=== PATIENT | male | born 1945 | race Caucasian/White ===

== ENCOUNTER 2017-01-31 11:11 | Inpatient (IN) ==
[2017-01-31] MEDS ORDERED: 0.9 % Sodium Chloride 1,000 ML IVC ONE (11:45)
--- NOTE | 2017-01-31 11:58 | Emergency Department Note ---
Addendum entered and electronically signed by Felix Schaeffer DO 01/31/17 23 :35: Addendum is for reports of MRA of head and neck. This showed occlusion of the branches of the internal carotid artery. Patient stable throughout his time in the emergency department. Patient accepted to [facility] with hospitalist for further evaluation of neurologic and Cardiologic causes of his syncope. Original Note: Disposition Clinical Impression: Syncope Qualifiers: Syncope type: unspecified Qualified Code(s): R55 - Syncope and collapse Disposition: Admitted As Inpatient Condition: Good Syncope HPI - General Chief Complaint: ED Syncope Stated Complaint: Syncope Time Seen by Provider: 01/31/17 11:40 Source: patient, EMS Mode of arrival: EMS Limitations: no limitations Nursing Notes Reviewed: Yes Vital Signs Reviewed: Yes - History of Present Illness HPI Narrative: 71-year-old male with history of carotid disease, heart disease, brain aneurysm presents by EMS from the 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 This occurred a few minutes after he received IV dye leading drops bilaterally. He was seated in his chair and then slumped over and became unresponsive for about 3 minutes. He was breathing throughout this episode. He did not have any tonic-clonic activity or loss of bowel or bladder function. He was diaphoretic through this episode. He feels fine at this time. He had a mild diffuse headache prior to the episode without any neck stiffness, vomiting, or complete confusion. He denies any recent trauma, illness or injury. He had a noncontrast CT performed at the urgent care there which was read as no evidence of intracranial hemorrhage with 3 mm density consistent with patient's known aneurysm. Labs there showed calcium of 9.1 chloride 109 CO2 23 creatinine 2.47 glucose 88 potassium 4.7 sodium 140 2B when 19 GFR 27.6 white blood cells 8.8 hemoglobin 13.9 platelets 278 troponin 0.00. - Related Data Home Medications Medication Instructions Recorded Confirmed Acetaminophen [Tylenol] 650 mg PO Q6HR PRN 01/31/17 01/31/17 Albuterol Sulfate [Albuterol 2 puff IH QID PRN 01/31/17 01/31/17 Inhaler] Amlodipine Besylate 10 mg PO DAILY 01/31/17 01/31/17 Cetirizine HCl [Zyrtec] 10 mg PO DAILY 01/31/17 01/31/17 Clotrimazole 1% CRM [Lotrimin 1%] 1 appl TP 2-3XD PRN 01/31/17 01/31/17 Donepezil HCl [Aricept] 5 mg PO DAILY 01/31/17 01/31/17 Hydrophilic Cream [Basle] 1 appl TP BID PRN 01/31/17 01/31/17 Isosorbide MONOnitrate [Isosorbide 20 mg PO BID 01/31/17 01/31/17 Mononitrate] Losartan Potassium [Cozaar] 100 mg PO DAILY 01/31/17 01/31/17 Ranitidine HCl [Zantac] 150 mg PO BID 01/31/17 01/31/17 Previous Rx's Medication Instructions Recorded Aspirin 81 mg PO DAILY #30 tab.chew 02/02/17 Atorvastatin [Lipitor] 40 mg PO HS #30 tablet 02/02/17 Carvedilol [Coreg] 3.125 mg PO BIDWM #60 tablet 02/02/17 Allergies Allergy/AdvReac Type Severity Reaction Status Date / Time No Known Allergies Allergy Verified 01/31/17 11:27 All systems ED: reviewed and negative except as stated. Past Medical History - Past Medical History Attestation: Yes The following information was validated with the patient. Source: patient Medical history: Reports: aortic aneurysm, arthritis, cancer, COPD, coronary artery disease, GERD, hyperlipidemia, hypertension, renal disease Psychiatric history: Reports: no psych history - Social History Smoking Status: Current every day smoker Smokeless Tobacco Status: No Alcohol use: Reports: none Drug use: Reports: none Physical Exam - Head Head exam: atraumatic, normocephalic, normal inspection - Eye Eye exam: Present: normal appearance, PERRL, EOMI - ENT ENT exam: normal exam, normal oropharynx, mucous membranes moist - Neck Neck exam: Present: normal inspection, full ROM, trachea midline no tenderness or nuchal rigidity. - Chest Chest inspection: Present: normal inspection, symmetric chest wall rise - Respiratory Respiratory exam: Clear to auscultation bilaterally without wheezes rales or rhonchi Cardiovascular Cardiovascular exam: Present: regular rate, normal rhythm, normal heart sounds - Abdominal Exam Abdominal exam: Present: soft, Non-Tender. Absent: tenderness, distention, guarding, rebound, rigidity - Extremities Exam Extremities exam: Present: normal inspection, full ROM - Expanded Lower Extremity Exam Hip/Pelvis exam: Present: normal inspection, full ROM - Back Exam Back exam: Present: normal inspection, full ROM. Absent: tenderness, CVA tenderness (R), CVA tenderness (L) - Neurological Exam Neurological exam: Present: alert, oriented X3, CN II-XII intact - Psychiatric Psychiatric exam: Present: normal affect, normal mood - Skin Skin exam: Present: warm, dry, intact, normal color - General Limitations: no limitations General appearance: alert, in no apparent distress Course Vital Signs Temperature 98.6 F 01/31/17 11:13 Pulse Rate 52 01/31/17 11:13 Respiratory Rate 16 01/31/17 11:13 Blood Pressure 150/66 01/31/17 11:13 O2 Sat by Pulse Oximetry 97 01/31/17 11:13 Temperature 97.8 F 02/02/17 10:51 Pulse Rate 49 02/02/17 10:51 Respiratory Rate 16 02/02/17 10:51 Blood Pressure 160/76 02/02/17 10:51 O2 Sat by Pulse Oximetry 97 02/02/17 11:00 Oxygen Delivery Oxygen Delivery Room Air Syncope - Lab Data Result diagrams: 02/02/17 03:45 02/02/17 03:45 Lab Results 01/31/17 01/31/17 02/01/17 Range/Units 14:16 19:37 01:41 WBC (4.3-11.1) K/mcL RBC (4.19-5.50) M/mcL Hgb (12.9-16.9) g/dL Hct (37.5-50.1) % MCV (83.0-100.0) fL MCH (28.0-33.3) pg MCHC (31.6-35.5) g/dL RDW (11.5-14.5) % Plt Count (140-400) K/mcL MPV (9.4-12.4) fL Immature Gran % (0-4) % Seg Neutrophils % % Lymphocytes % % Monocytes % % Eosinophils % % Basophils % % Neutrophils # (1.6-8.9) K/mcL Lymphocytes # (0.6-4.6) K/mcL Monocytes # (0.0-1.3) K/mcL Eosinophils # (0.0-0.6) K/mcL Basophils # (0.0-0.2) K/mcL Sodium (136-145) mEq/L Potassium (3.5-4.5) mEq/L Chloride (98-109) mEq/L Carbon Dioxide (19-29) mEq/L BUN (8-26) mg/dL Creatinine (0.72-1.25) mg/dL POC Creatinine 2.30 H (0.70-1.30) mg/dL POC Estimated GFR (eGFR) 28 L (> 60) Est GFR ( Amer) (> 60) Est GFR (Non-Af Amer) (> 60) BUN/Creatinine Ratio (6-26) Glucose (70-99) mg/dL Calculated Osmolality (280-300) Calcium (8.6-10.8) mg/dL Troponin I 0.01 0.02 (0-0.03) ng/mL B-Natriuretic Peptide (0-100) pg/mL Triglycerides (< 150) mg/dL Cholesterol (< 200) mg/dL LDL Cholesterol, Calc (0-99) mg/dL VLDL Cholesterol, Calc (< 31) mg/dL HDL Cholesterol (40-59) mg/dL Cholesterol/HDL Ratio (0-4.9) 02/01/17 02/01/17 02/01/17 Range/Units 01:41 01:41 01:41 WBC 11.7 H (4.3-11.1) K/mcL RBC 3.81 L (4.19-5.50) M/mcL Hgb 12.0 L (12.9-16.9) g/dL Hct 37.1 L (37.5-50.1) % MCV 97.4 (83.0-100.0) fL MCH 31.5 (28.0-33.3) pg MCHC 32.3 (31.6-35.5) g/dL RDW 14.0 (11.5-14.5) % Plt Count 240 (140-400) K/mcL MPV 10.8 (9.4-12.4) fL Immature Gran % 0.4 (0-4) % Seg Neutrophils % 50.8 % Lymphocytes % 33.3 % Monocytes % 9.3 % Eosinophils % 5.9 % Basophils % 0.3 % Neutrophils # 5.9 (1.6-8.9) K/mcL Lymphocytes # 3.9 (0.6-4.6) K/mcL Monocytes # 1.1 (0.0-1.3) K/mcL Eosinophils # 0.7 H (0.0-0.6) K/mcL Basophils # 0.0 (0.0-0.2) K/mcL Sodium 140 (136-145) mEq/L Potassium 4.6 H (3.5-4.5) mEq/L Chloride 110 H (98-109) mEq/L Carbon Dioxide 18 L (19-29) mEq/L BUN 28 H (8-26) mg/dL Creatinine 2.15 H (0.72-1.25) mg/dL POC Creatinine (0.70-1.30) mg/dL POC Estimated GFR (eGFR) (> 60) Est GFR ( Amer) 37 L (> 60) Est GFR (Non-Af Amer) 30 L (> 60) BUN/Creatinine Ratio 13 (6-26) Glucose 77 (70-99) mg/dL Calculated Osmolality 294 (280-300) Calcium 9.0 (8.6-10.8) mg/dL Troponin I (0-0.03) ng/mL B-Natriuretic Peptide 59 (0-100) pg/mL Triglycerides 58 (< 150) mg/dL Cholesterol 123 (< 200) mg/dL LDL Cholesterol, Calc 81 (0-99) mg/dL VLDL Cholesterol, Calc 12 (< 31) mg/dL HDL Cholesterol 30 L (40-59) mg/dL Cholesterol/HDL Ratio 4.1 (0-4.9) 02/01/17 Range/Units 06:52 WBC (4.3-11.1) K/mcL RBC (4.19-5.50) M/mcL Hgb (12.9-16.9) g/dL Hct (37.5-50.1) % MCV (83.0-100.0) fL MCH (28.0-33.3) pg MCHC (31.6-35.5) g/dL RDW (11.5-14.5) % Plt Count (140-400) K/mcL MPV (9.4-12.4) fL Immature Gran % (0-4) % Seg Neutrophils % % Lymphocytes % % Monocytes % % Eosinophils % % Basophils % % Neutrophils # (1.6-8.9) K/mcL Lymphocytes # (0.6-4.6) K/mcL Monocytes # (0.0-1.3) K/mcL Eosinophils # (0.0-0.6) K/mcL Basophils # (0.0-0.2) K/mcL Sodium (136-145) mEq/L Potassium (3.5-4.5) mEq/L Chloride (98-109) mEq/L Carbon Dioxide (19-29) mEq/L BUN (8-26) mg/dL Creatinine (0.72-1.25) mg/dL POC Creatinine (0.70-1.30) mg/dL POC Estimated GFR (eGFR) (> 60) Est GFR ( Amer) (> 60) Est GFR (Non-Af Amer) (> 60) BUN/Creatinine Ratio (6-26) Glucose (70-99) mg/dL Calculated Osmolality (280-300) Calcium (8.6-10.8) mg/dL Troponin I 0.01 (0-0.03) ng/mL B-Natriuretic Peptide (0-100) pg/mL Triglycerides (< 150) mg/dL Cholesterol (< 200) mg/dL LDL Cholesterol, Calc (0-99) mg/dL VLDL Cholesterol, Calc (< 31) mg/dL HDL Cholesterol (40-59) mg/dL Cholesterol/HDL Ratio (0-4.9) - EKG Data EKG attestation: Yes I reviewed and interpreted this EKG. EKG results narrative: EKG shows sinus bradycardia at 55 with normal axis and intervals. No ST elevation or depression. No T-wave inversions or flattening. No pathologic Q waves. This is a normal EKG other than slightly bradycardic rate. Attestation Statement - Attestation Attestation: I examined this patient and my medical decision-making was reviewed with the RADIOLOGY DIRECTOR/PA/Advanced Practice Nurse/Resident Physician. I agree with the documented findings, disposition and treatment plan as described except to the extent set forth below. Patient 80 after syncopal episode. Patient was entered up, treated appointment at the [place]. They put drops in his eyes and he had syncopal episode. He does not remember the event. Family states that he had a loss of consciousness over a couple of minutes. He feels fine now. He has a history of a nonoperable frontal lobe aneurysm and carotid stenosis. On exam he is awake and alert in no distress. Neurologically intact. Plan. The patient had a cardiac workup and head CT at the [place] they do not show any acute abnormalities or acute cranial hemorrhages. We will check MRA head and neck. Will admit for further cardiac workup.
[2017-01-31] MEDS ORDERED: Naloxone 0.4 MG/ML INJ IVP PRN (19:07)
[2017-01-31] MEDS ORDERED: Clotrimazole 1% CRM 15 GM TUBE TP PRN (19:09)
--- NOTE | 2017-01-31 19:20 | Internal Med History&Physical ---
<Avril Carcamo - Last Filed: 01/31/17 19:32> Date of Encounter: 01/31/17 Time of Encounter: 19:13 Assessment and Plan (1) Syncope Current visit: Yes Status: Acute on day of admission while eye were being dilated for exam at [facility]. Was found slumped over in chair by ; with 1-2 min loss of consciousness. Etiology unknown at this time. carotid setnosis and No evidence if biting tongue, no loss of badder. [facility] EKG with bradycardia, has known carotid stenosis. Brain MRI negative for CVA. Head/neck MRI/A with complete distal right ICA occlusion, 50% left ICA occlusion. Check echo, orthostatics. Consult Vascular Surgery Qualifiers: Syncope type: unspecified Qualified Code(s): R55 - Syncope and collapse (2) Carotid artery stenosis Current visit: Yes Status: Acute per hx. Has routine imaging at [facility]. Per [facility] records, surgical intervention was not recommended 11/2015. Head/neck MRI/A with complete distal right ICA occlusion , 50% left ICA occlusion. Vascular Surgery consulted Qualifiers: Laterality: bilateral Qualified Code(s): I65.23 - Occlusion and stenosis of bilateral carotid arteries (3) CKD (chronic kidney disease) Current visit: Yes Status: Acute per reported hx. [facility] Cr 2.4; baseline unknown. Gentle IV hydration. repeat CMP. Nephrology consulted with possible vascular intervention. Qualifiers: Chronic kidney disease stage: stage 3 (moderate) Qualified Code(s): N18.3 - Chronic kidney disease, stage 3 (moderate) (4) Cerebral aneurysm Current visit: Yes Status: Acute per reported hx. [facility] Head CT with concern for small right anterior cerebral artery aneurysm. [facility] MRA head without evidence of intracranial aneurysm. Hold on further work-up at this time. (5) HTN (hypertension) Current visit: Yes Status: Acute per hx. BP variable but acceptable. Holding home ARB until repeat CMP to reassess Cr. Cont home BB, amlodipine Resume ARB if Cr stable. Monitor BP and titrate PRN Qualifiers: Hypertension type: essential hypertension Qualified Code(s): I10 - Essential (primary) hypertension (6) CAD (coronary artery disease) Current visit: Yes Status: Acute per hx. Asymptomatic. Denies CP. [facility] EKG with Sinus bradycardia. no acute ST changes. COnt home ASA, BB, nitrate Qualifiers: Coronary Disease-Associated Artery/Lesion type: ione artery Qualified Code(s): I25.10 - Atherosclerotic heart disease of ione coronary artery without angina pectoris (7) Dementia Current visit: Yes Status: Acute per hx. Appears at baseline. Supportive care Qualifiers: Dementia type: vascular dementia Qualified Code(s): F01.50 - Vascular dementia without behavioral disturbance (8) DVT prophylaxis Current visit: Yes Status: Acute heparin Internal Medicine - H&P: HPI Chief complaint: I passed out Admitted From: Home Plans for Post Hospital Care: Home History of present illness: Mr. Real is a 71 year old male with PMH COPD, TIA, HTN, dementia, cerebral aneurysm, and carotid stenosis who presented to [facility] on 01/31/2017 after a syncopal episode while at the [place]. He was placed in observation status for continued monitoring and work-up. Information obtained from chart review, [facility], patient and family report. Patient does not remember the incident and defers questions at bedside. Per , patient was at [facility] and just had eyes dilated she he suddenly slumped over, was drooling at the mouth with copious secretions. thinks he was out for 1-2 minutes. Patient denies biting teeth , no loss of bladder control. No seizure like activity per . He was apparently emotional after waking up and would moan and cry out. is not sure if speech was slurred but says she had hard time understanding him. On my exam he appears at baseline. Has chronic right eye blurred vision. No slurred speech, no facial droop. No headaches or palpitations Past Med Surg Social Fam HX - Past Medical History Medical history: aortic aneurysm, arthritis, cancer, COPD, coronary artery disease, GERD, hyperlipidemia, hypertension, renal disease Psychiatric history: no psych history - Past Surgical History Surgical History: non-contributory - Social History Smoking Status: Current every day smoker Smokeless Tobacco Status: No Alcohol use: none Drug use: none - Additional Family History Additional family history: reviewed and non-contributory Internal Medicine - H&P: Meds Acetaminophen [Tylenol] 650 mg PO Q6HR PRN 01/31/17 [History] Albuterol Sulfate [Albuterol Inhaler] 2 puff IH QID PRN 01/31/17 [History] Amlodipine Besylate 10 mg PO DAILY 01/31/17 [History] Atorvastatin Calcium [Lipitor] 20 mg PO HS 01/31/17 [History] Carvedilol [Coreg] 6.25 mg PO BIDWM 01/31/17 [History] Cetirizine HCl [Zyrtec] 10 mg PO DAILY 01/31/17 [History] Clotrimazole 1% CRM [Lotrimin 1%] 1 appl TP 2-3XD PRN 01/31/17 [History] Donepezil HCl [Aricept] 5 mg PO DAILY 01/31/17 [History] Hydrophilic Cream [Basle] 1 appl TP BID PRN 01/31/17 [History] Isosorbide MONOnitrate [Isosorbide Mononitrate] 20 mg PO BID 01/31/17 [History] Losartan Potassium [Cozaar] 100 mg PO DAILY 01/31/17 [History] Ranitidine HCl [Zantac] 150 mg PO BID 01/31/17 [History] Allergies No Known Allergies Allergy (Verified 01/31/17 11:27) All Systems PM: A 10-system review of systems was performed and is negative for pertinent findings except as documented above in the HPI. - Constitutional Constitutional: no chills, no fever(s), no night sweats - EENT Eyes: blurry vision, no change in vision, no discharge, no pain, no photophobia Ears: no ear discharge, no ear pain, no tinnitus Nose, mouth and throat: no dysphagia, no nasal discharge, no neck pain, no sore throat - Cardiovascular Cardiovascular ROS IM: no chest pain, no diaphoresis, no dyspnea, no lightheadedness, no palpitations, no syncope - Respiratory Respiratory: no cough, no dyspnea, no wheezing, no excessive phlegm production - Gastrointestinal Gastrointestinal: no abdominal pain, no diarrhea, no hematemesis, no hematochezia, no melena, no nausea, no vomiting - Musculoskeletal Musculoskeletal ROS IM: no numbness, no tingling - Integumentary Integumentary IM: no rash, no unusual bruising - Neurological Neurological ROS: no confusion, no convulsions, no focal weakness, no numbness, no tingling, no tremor(s) - Hematologic/Lymphatic Hematologic/Lymphatic: no easy bruising - Constitutional Vitals: Temp Pulse Resp BP Pulse Ox 97.9 F 61 15 154/64 96 01/31/17 18:07 01/31/17 18:07 01/31/17 18:07 01/31/17 18:07 01/31/17 18:07 General appearance: Present: A&O X 2, no acute distress - Head Head exam: Present: atraumatic, normocephalic - Eye Eye exam: Present: PERRL, conjuntiva pink, sclera anicteric Pupils: Present: PERRL - Neck Neck exam general surgery: Present: supple, trachea midline. Absent: lymphadenopathy - Respiratory Respiratory exam: Present: CTAB, rhonchi. Absent: accessory muscle use, rales, wheezes Additional comments: scattered rhonchi, clears with cough - Cardiovascular Cardiovascular exam: Present: RRR, +S1, +S2. Absent: diastolic murmur, gallop, rubs, systolic murmur - GI/Abdominal GI/Abdominal exam: Present: normal bowel sounds, soft, no peritoneal signs. Absent: distended, tenderness - Extremities Exam Extremities exam: Present: warm, radial pulses palpable and symetrical. Absent : calf tenderness, cyanotic, pedal edema - Neurological Exam Neurological exam: Present: alert, CN II-XII intact, no focal deficits. Absent : pronater drift, facial droop, speech deficit Additional comments: alert to self and place - Skin Skin exam: Present: dry, intact <Lamin Thorpe - Last Filed: 01/31/17 21:10> Date of Encounter: 01/31/17 - Genitourinary Genitourinary ROS male: no flank pain, no hematuria - Psychiatric Psychiatric: no anxiety, no depression - Endocrine Endocrine IM: no cold intolerance, no heat intolerance, no polydipsia, no polyphagia, no polyuria - Allergic/Immunologic Allergic/Immunologic: no uticaria, no wheezing, no GI upset with certain foods - Constitutional Vitals: Temp Pulse Resp BP Pulse Ox 98.0 F 57 18 159/71 97 01/31/17 20:15 01/31/17 20:15 01/31/17 20:15 01/31/17 20:15 01/31/17 20:15 General appearance: Present: cooperative, A&O X 2, pleasant, no acute distress - Head Head exam: Present: atraumatic - Expanded Head Exam Head exam expanded: Absent: abrasion, contusion, general tenderness - Neck Neck exam general surgery: Present: full ROM. Absent: tenderness - Expanded Neck Exam Neck exam: Present: carotid bruit (+ bilaterally) - Respiratory Respiratory exam: Present: CTAB. Absent: respiratory distress - Cardiovascular Cardiovascular exam: Present: RRR, +S1, +S2. Absent: diastolic murmur, systolic murmur - GI/Abdominal GI/Abdominal exam: Present: soft. Absent: tenderness Additional comments: no abdominal bruits noted - Back Exam Back exam: Present: normal inspection. Absent: CVA tenderness (L), CVA tenderness (R) - Neurological Exam Neurological exam: Present: alert, CN II-XII intact, no focal deficits - Psychiatric Psychiatric exam: Present: normal affect, normal mood - Skin Skin exam: Present: dry, warm. Absent: rash Internal Med - H&P Results - Labs Labs: Cardiac Enzymes 01/31/17 Range/Units 19:37 Troponin I 0.01 (0-0.03) ng/mL - EKG Data -: EKG Interpreted by Myself EKG shows normal: sinus rhythm Rate: bradycardia - EKG Data Prior EKG available for review: no EKG comments: 01/31/17 21:00 Sinus bradycardia with HR in the 50's; no other findings. - Attending Attestation I discussed the patient KALSKAG, PMH, ROS, lab data, and exam findings with Avril Carcamo CNP. I then saw, examined, and assessed patient independently as well. Patient does not [facility], but he remembers waking up and being a little confused afterwards. Presently, he feels well and is at his baseline. I reviewed his [facility] chart provided and personally reviewed his EKG as well. On exam, he does have bilateral carotid bruits. I agree with vascular surgery and nephrology consults, especially if he'll require angiogram to better define his carotid anatomy. He may need CEA now that he is symptomatic from his carotid stenosis. However, I'll defer to vascular surgery. Per patient, there is FH for stroke and his brother did require CEA. Other than my comments above and noted exam findings, I agree with Avril's assessment and plan.
[2017-01-31] MEDS ORDERED: Isosorbide MONOnitrate (24 HR) 30 MG TAB.ER.24H PO SCH (21:00)
[2017-01-31] MEDS: *HR* Heparin 5,000 UNIT/ML VIAL SQ SCH (21:18)
[2017-01-31] MEDS: 0.9 % Sodium Chloride 1,000 ML IVC SCH (21:19)
--- NOTE | 2017-01-31 22:23 | Carotid Imaging Report ---
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 Findings: Diffuse thickening vs chronic plaque of left carotid system. Beginning at the level of the Left ICA tapers to a small diameter vessel. Overall low flow velocities on the left despite right ICA occlusion(chronic) suggests distal disease. Recommendations: Suggest clinical correlation and Follow up exam 6 months. Test completed on 01/31/2017 at 9:48:00 pm. Critical findings reported to Dr Guevara by phone at 9:55:00 pm on 01/31/2017 by Jaye Lamb RDCS. Findings Carotid Duplex: Right: The right proximal common carotid artery has a PSV of 68 cm/s and a EDV of 11 cm/s. The right mid common carotid artery has a PSV of 48 cm/s and a EDV of 11 cm/s. The right distal common carotid artery has a PSV of 61 cm/s and a EDV of 11 cm/s. The right bifurcation has a PSV of 45 cm/s and a EDV of 12 cm/s. The right eca has a PSV of 497 cm/s and a EDV of 66 cm/s. The right vertebral artery has a PSV of 80 cm/s and a EDV of 28 cm/s. There is antegrade spectral Doppler flow patterns. Left: The left proximal common carotid artery has a PSV of 41 cm/s and a EDV of 18 cm/s. The left mid common carotid artery has a PSV of 39 cm/s and a EDV of 20 cm/s. The left distal common carotid artery has a PSV of 36 cm/s and a EDV of 18 cm/s. There is nonstenotic plaque in the left bifurcation with a PSV of 58 cm/s and a EDV of 27 cm/s. There is smooth plaque. The left proximal internal carotid artery has a PSV of 57 cm/s and a EDV of 21 cm/s. The left mid internal carotid artery has a PSV of 61 cm/s and a EDV of 32 cm/s. The left distal internal carotid artery has a PSV of 48 cm/s and a EDV of 27 cm/s. The left eca has a PSV of 47 cm/s and a EDV of 14 cm/s. The left vertebral artery has a PSV of 47 cm/s and a EDV of 16 cm/s. There is antegrade spectral Doppler flow patterns. Prior Study: No prior study available for comparison. Carotid Results Right PSV EDV Assessment Proximal CCA 68 11 Mid CCA 48 11 Distal CCA 61 11 Bifurcation 45 12 ECA 497 66 Vertebral Artery 80 28 Antegrade Flow Left PSV EDV Assessment Proximal CCA 41 18 Mid CCA 39 20 Distal CCA 36 18 Bifurcation 58 27 Non Stenotic Plaque Proximal ICA 57 21 Mid ICA 61 32 Distal ICA 48 27 ECA 47 14 Vertebral Artery 47 16 Antegrade Flow Ratio's Left ICA/CCA Ratio: 1.56 ICA/CCA Values: 61/39 Updated by Harshad Guevara MD, FACS on 01/31/2017 10:17:56 PM Harshad Guevara MD electronically signed on 01/31/2017 10:18:54 PM with status of Final
--- NOTE | 2017-01-31 22:56 | Vascular/Endovasc Consult Note ---
Date of Encounter: 01/31/17 Time of Encounter: 22:53 Assessment and Plan (1) Syncope Current Visit: Yes Status: Acute Unexplained episode of syncope that occurred at the [facility] earlier today. No previous episodes of syncope. No history of seizure activity. Qualifiers: Syncope type: unspecified Qualified Code(s): R55 - Syncope and collapse (2) Carotid artery stenosis Current Visit: Yes Status: Chronic Patient has chronic right internal carotid artery occlusion. There is pathologic changes diffusely in the left carotid system by duplex scanning but there is no focal hemodynamically significant stenosis. There is no indication for further testing such as carotid angiography or carotid endarterectomy for the left carotid artery. I've explained to the patient that due to the occlusive nature of the plaque on the right side that there is no indication for right carotid endarterectomy. Of note the vertebral arteries are patent with antegrade flow bilaterally. Qualifiers: Laterality: bilateral Qualified Code(s): I65.23 - Occlusion and stenosis of bilateral carotid arteries - History of Present Illness Consult date: 01/31/17 Consult reason: Syncope with abnormal carotid study Chief complaint: Passing out at [facility] History of present illness: Mr. Real is a 71 year old male who was seen in consultation because of a syncopal episode that occurred early this morning. The patient is not a completely clear historian but as best I can understand it he was at the [facility] for an ophthalmologic evaluation. While being evaluated he became unconscious for no apparent reason. Apparently he was unconscious for approximately 1-2 minutes and had no seizure-like activity. From there he was taken to the urgent care center and then referred to [facility]. He was subsequently admitted to the hospital. The patient denies any previous similar type symptoms. He states that when he was in the urgent care's area he had a headache but this has subsequently resolved. He states that about 5 years ago he had dramatic decrease in the right eye vision. This apparently led to a workup that included a carotid duplex scan that demonstrated an occluded right internal carotid artery. He states that he has had subsequent carotid duplex scans though we do not know the results of those exams. The patient underwent an MRA and MRI today. This demonstrated no acute ischemia or intercranial mass. It demonstrated a right internal carotid artery occlusion and a suspicion for left carotid stenosis. A carotid duplex scan was performed this evening about 1 hour ago which I have reviewed the images and spoken with the technologist. This demonstrates the right internal carotid artery occlusion which appears chronic. The left internal carotid system has a thickening or chronic thrombus or plaque that extends through the vessel but does not cause any dramatic stenosis or hemodynamically significant reduction in flow. In the midportion of the left internal carotid artery the vessel decreases in caliber but again without signs of dissection or acute thrombus. Past Med Surg Social Fam HX - Past Medical History Medical history: aortic aneurysm, arthritis, cancer, COPD, coronary artery disease, GERD, hyperlipidemia, hypertension, renal disease Psychiatric history: no psych history - Past Surgical History Surgical History: non-contributory - Social History Smoking Status: Current every day smoker Smokeless Tobacco Status: No Alcohol use: none Drug use: none Medications and Allergies Acetaminophen [Tylenol] 650 mg PO Q6HR PRN 01/31/17 [History] Albuterol Sulfate [Albuterol Inhaler] 2 puff IH QID PRN 01/31/17 [History] Amlodipine Besylate 10 mg PO DAILY 01/31/17 [History] Atorvastatin Calcium [Lipitor] 20 mg PO HS 01/31/17 [History] Carvedilol [Coreg] 6.25 mg PO BIDWM 01/31/17 [History] Cetirizine HCl [Zyrtec] 10 mg PO DAILY 01/31/17 [History] Clotrimazole 1% CRM [Lotrimin 1%] 1 appl TP 2-3XD PRN 01/31/17 [History] Donepezil HCl [Aricept] 5 mg PO DAILY 01/31/17 [History] Hydrophilic Cream [Basle] 1 appl TP BID PRN 01/31/17 [History] Isosorbide MONOnitrate [Isosorbide Mononitrate] 20 mg PO BID 01/31/17 [History] Losartan Potassium [Cozaar] 100 mg PO DAILY 01/31/17 [History] Ranitidine HCl [Zantac] 150 mg PO BID 01/31/17 [History] Allergies No Known Allergies Allergy (Verified 01/31/17 11:27) All Systems Review: A 10-system review of systems was performed and is negative for pertinent findings except as documented above in the HPI. Exam Vital Signs, Last 4 Hours Temp Pulse Resp BP Pulse Ox 01/31/17 20:15 98.0 F 57 18 159/71 97 General: Present: Conversant, No Apparent Distress, Well developed, Well nourished HEENT: Present: Atraumatic, Normocephaly Neck: Present: Left Carotid bruit, Right Carotid bruit. Absent: JVD, Midline deformity, Tracheal deviation Cardiac: Present: Reg Rate and Rhythm, Normal S1 and S2 Lungs: Present: Normal Breath Sounds Neuro: Present: Alert and responsive, No focal deficits noted (The exception is decreased right eye vision.), Motor nerves grossly intact Abdomen: Present: Soft, Non-tender, Other (Mid abdominal and bilateral pelvic bruits. I do not palpate any pulsatile masses to suggest an abdominal aortic aneurysm.). Absent: Hepatosplenomegaly, Masses Vascular: Present: Bruit (Bilateral femoral bruits), Pulse, normal, Other (The patient has bilateral femoral bruits. There are no masses in the femoral or popliteal space to suggest aneurysmal changes.). Absent: Cyanosis, Edema Skin: Present: No rashes noted on visualized skin Consult Discharge Plan - Plan [facility]errals: [facility] [Primary Care Provider] -
[2017-02-01 05:02] LABS: Basophils % 0.3 %; Eosinophils # 0.7 K/mcL (0.0-0.6); Eosinophils % 5.9 %; Hematocrit 37.1 % (37.5-50.1); Immature Granulocytes % 0.4 % (0-4); Lymphocytes # 3.9 K/mcL (0.6-4.6); Lymphocytes % 33.3 %; Mean Corpuscular HGB Conc 32.3 g/dL (31.6-35.5); Mean Corpuscular Hemoglobin 31.5 pg (28.0-33.3); Mean Corpuscular Volume 97.4 fL (83.0-100.0); Mean Platelet Volume 10.8 fL (9.4-12.4); Monocytes # 1.1 K/mcL (0.0-1.3); Monocytes % 9.3 %; Neutrophils # 5.9 K/mcL (1.6-8.9); Platelet Count 240 K/mcL (140-400); Red Blood Count 3.81 M/mcL (4.19-5.50); Segmented Neutrophils % 50.8 %
[2017-02-01 05:30] LABS: Chol/HDL Ratio 4.1 (0-4.9); Potassium 4.6 mEq/L (3.5-4.5)
[2017-02-01] MEDS: *HR* Heparin 5,000 UNIT/ML VIAL SQ SCH ×3 (06:39→21:12)
[2017-02-01 07:40] LABS: POC Creatinine Result 2.3 mg/dL (0.70-1.30)
--- NOTE | 2017-02-01 09:18 | Internal Med Progress Note ---
Date of Encounter: 02/01/17 Time of Encounter: 09:10 - Subjective Interval history: Patient was found to have right upper extremity and lower extremity weakness at 9:00AM that was new in onset, not present at admission. NISHSS scale 5 initially for right leg and right arm motor drift. Repeat NIHSS scale at 9:10 was 3 for right leg motor drift and had 5/5 strength of right upper extremity. Patient was sent stat for CT head. - Constitutional Vitals: Temp Pulse Resp BP Pulse Ox 98.1 F 62 16 151/98 98 02/01/17 07:29 02/01/17 07:29 02/01/17 07:29 02/01/17 07:29 02/01/17 07:29 General appearance: Present: cooperative, A&O X 2, pleasant, no acute distress Internal Medicine: Result - Labs CBC & Chem 7: 02/01/17 01:41 02/01/17 01:41 Labs: Short CBC 02/01/17 Range/Units 01:41 WBC 11.7 H (4.3-11.1) K/mcL Hgb 12.0 L (12.9-16.9) g/dL Hct 37.1 L (37.5-50.1) % Plt Count 240 (140-400) K/mcL Neutrophils # 5.9 (1.6-8.9) K/mcL BMP 02/01/17 01:41 Sodium 140 Potassium 4.6 H Chloride 110 H Carbon Dioxide 18 L BUN 28 H Creatinine 2.15 H Glucose 77 Calcium 9.0 Cardiac Enzymes 01/31/17 02/01/17 02/01/17 Range/Units 19:37 01:41 06:52 Troponin I 0.01 0.02 0.01 (0-0.03) ng/mL Consult Discharge Plan - Plan Referrals: [facility] [Primary Care Provider] -
[2017-02-01] MEDS: Isosorbide MONOnitrate (24 HR) 30 MG TAB.ER.24H PO SCH (09:57)
[2017-02-01] MEDS: amLODIPine 5 MG TABLET PO SCH (09:57)
[2017-02-01] MEDS: Loratadine 10 MG TABLET PO SCH (09:57)
--- NOTE | 2017-02-01 10:23 | Nephrology Consult Note ---
Date of Encounter: 02/01/17 Time of Encounter: 09:55 Assessment and Plan (1) CKD (chronic kidney disease) Current Visit: Yes Status: Acute CKD stage 3 in setting of HTN. Baseline creat 1.9-2.1. Creat today 2.15. Syncope with known carotid artery stenosis. To have ECHO today. Will continue to monitor. Qualifiers: Chronic kidney disease stage: stage 3 (moderate) Qualified Code(s): N18.3 - Chronic kidney disease, stage 3 (moderate) History of Present Illness - Reason for Consult Chronic Kidney Disease - History of Present Illness Mr. Real is a 71 year old male known to our practice with CKD stage 3 in setting of hypertension. Last seen in office in August. He does have progressing kidney disease with recent baseline creat 1.9-2.1. Other PMH- CAD, COPD, PVD CVA-blind right eye, TIA's, chronic right carotid occlusion, hyperlipidemia, bladder cancer, AAA 3.2cm on CT 11/2013. Mr. Real became syncopal with 1-2 minute LOC. during eye exam at [facility] and was transferred to [facility]. EKG while at [place] with bradycardia, known carotid stenosis. Brain MRI negative for CVA. Head/neck MRI/A with complete distal right ICA occlusion, 50% left ICA occlusion. At consult today, alert and oriented x 3 although nurse in room states patient had episode this morning of transient right sided weakness with no LOC. Currently hand grasps and pedal pushes strong and equal, speech clear. Past Med Surg Social Fam HX - Past Medical History Medical history: aortic aneurysm, arthritis, cancer, COPD, coronary artery disease, GERD, hyperlipidemia, hypertension, renal disease Psychiatric history: no psych history - Past Surgical History Surgical History: non-contributory - Social History Smoking Status: Current every day smoker Smokeless Tobacco Status: No Alcohol use: none Drug use: none Medications and Allergies Acetaminophen [Tylenol] 650 mg PO Q6HR PRN 01/31/17 [History] Albuterol Sulfate [Albuterol Inhaler] 2 puff IH QID PRN 01/31/17 [History] Amlodipine Besylate 10 mg PO DAILY 01/31/17 [History] Atorvastatin Calcium [Lipitor] 20 mg PO HS 01/31/17 [History] Carvedilol [Coreg] 6.25 mg PO BIDWM 01/31/17 [History] Cetirizine HCl [Zyrtec] 10 mg PO DAILY 01/31/17 [History] Clotrimazole 1% CRM [Lotrimin 1%] 1 appl TP 2-3XD PRN 01/31/17 [History] Donepezil HCl [Aricept] 5 mg PO DAILY 01/31/17 [History] Hydrophilic Cream [Basle] 1 appl TP BID PRN 01/31/17 [History] Isosorbide MONOnitrate [Isosorbide Mononitrate] 20 mg PO BID 01/31/17 [History] Losartan Potassium [Cozaar] 100 mg PO DAILY 01/31/17 [History] Ranitidine HCl [Zantac] 150 mg PO BID 01/31/17 [History] Allergies No Known Allergies Allergy (Verified 01/31/17 11:27) Review of Systems All Systems: reviewed and no additional remarkable complaints except as stated Exam - Vital Signs Vital signs: Initial Vital Signs Temp Pulse Resp BP Pulse Ox 98.6 F 52 16 150/66 97 01/31/17 11:13 01/31/17 11:13 01/31/17 11:13 01/31/17 11:13 01/31/17 11:13 Vital Signs - Last 8 Hours Temp Pulse Resp BP Pulse Ox 02/01/17 07:29 98.1 F 62 16 151/98 98 02/01/17 04:00 97.9 F 54 16 154/81 97 Intake and Output 01/31/17 02/01/17 02/01/17 23:59 07:59 15:59 Intake Total 0 / 0 400 / 400 Output Total 250 / 250 1480 / 1480 220 / 220 Balance -250 / -250 -1080 / -1080 -220 / -220 Intake: Oral 0 / 0 400 / 400 Output: Urine 250 / 250 1480 / 1480 220 / 220 Other: # Voids 0 0 Weight 64.2 kg 63.7 kg Patient Weight 02/01/17 23:59 Weight 63.7 kg - General Appearance General appearance: well-developed, well-nourished, appears started age EENT: mucous membranes moist Neck: no JVD Additional Comments: diminished throughout Cardiology: no edema, regular rate, regular rhythm Gastrointestinal: normoactive bowel sounds, no tenderness, no guarding Integumentary: warm and dry Neurologic: alert and oriented x3 Psychiatric: mood/affect appropriate, cooperative Results - Lab Results 02/01/17 01:41 02/01/17 01:41 Most recent lab results Calcium 9.0 mg/dL (8.6-10.8) 02/01/17 01:41 Consult Discharge Plan - Plan [facility]errals: [facility] [Primary Care Provider] -
--- NOTE | 2017-02-01 10:30 | Neurology - Consult Note ---
<Olegario Santillan - Last Filed: 02/01/17 11:40> Date of Encounter: 02/01/17 Time of Encounter: 10:05 Assessment and Plan (1) Syncope Current Visit: Yes Status: Acute All symptoms have resolved at this time. No acute findings on CT head. Differential includes TIA or arrhythmia. Carotid duplex demonstrated complete occlusion of the right internal carotid artery. Left sided thickening vs. chronic plaque. Continue Lipitor. Serial exams. Qualifiers: Syncope type: unspecified Qualified Code(s): R55 - Syncope and collapse History of Present Illness Chief complaint: Loss of consciousness HPI: Mr. Real is a 71 year old male [facility] significant for COPD, TIA, HTN, dementia , cerebral aneurysm, and carotid stenosis who came into the hospital for an episode of syncope. The patient is a somewhat poor historian, but he reports that yesterday he was at the [facility] for an eye exam and briefly passed out for 1-2 minutes while he was waiting for his eyes to dilate. He was taken to an urgent care and then transferred to the Emergency Department. He reports that he had some difficulty with coordination after his episode of loss of consciousness. He denies having any weakness. MRA of the brain demonstrated no evidence of acute ischemia with mild atrophy. MRA of the neck demonstrates grater than 50% right and less than 50% left internal carotid artery stenosis with occlusion of the distal cervical, petrous, and cavernous segments of the right internal carotid artery. Earlier on 02/01 the patient was reported being slumped over in bed and had weakness in his right lower extremity. Stat CT of the head was ordered and demonstrated atrophy and small vessel ischemic disease with left maxillary sinus disease, but no acute changes. The patient is not currently complaining of any symptoms at this time. Past Med Surg Social Fam HX - Past Medical History Medical history: aortic aneurysm, arthritis, cancer, COPD, coronary artery disease, GERD, hyperlipidemia, hypertension, renal disease Psychiatric history: no psych history - Past Surgical History Surgical History: non-contributory - Social History Smoking Status: Current every day smoker Smokeless Tobacco Status: No Alcohol use: none Drug use: none Medications and Allergies Acetaminophen [Tylenol] 650 mg PO Q6HR PRN 01/31/17 [History] Albuterol Sulfate [Albuterol Inhaler] 2 puff IH QID PRN 01/31/17 [History] Atorvastatin Calcium [Lipitor] 20 mg PO HS 01/31/17 [History] Carvedilol [Coreg] 6.25 mg PO BIDWM 01/31/17 [History] Cetirizine HCl [Zyrtec] 10 mg PO DAILY 01/31/17 [History] Clotrimazole 1% CRM [Lotrimin 1%] 1 appl TP 2-3XD PRN 01/31/17 [History] Donepezil HCl [Aricept] 5 mg PO DAILY 01/31/17 [History] Hydrophilic Cream [Basle] 1 appl TP BID PRN 01/31/17 [History] Losartan Potassium [Cozaar] 100 mg PO DAILY 01/31/17 [History] RX: Amlodipine Besylate 10 mg PO DAILY 01/31/17 [History] RX: Isosorbide MONOnitrate [Isosorbide Mononitrate] 20 mg PO BID 01/31/17 [ History] Ranitidine HCl [Zantac] 150 mg PO BID 01/31/17 [History] Allergies No Known Allergies Allergy (Verified 01/31/17 11:27) All Systems: A 10-system review of systems was performed and is negative for pertinent findings except as documented above in the HPI. Review of Systems: Negative except as stated in the HPI Physical Examination - Vital Signs Vital Signs: Initial Vital Signs Temp Pulse Resp BP Pulse Ox 98.6 F 52 16 150/66 97 01/31/17 11:13 01/31/17 11:13 01/31/17 11:13 01/31/17 11:13 01/31/17 11:13 - Constitutional General appearance: comfortable - Neurologic Sensorimotor examination: intact Detailed motor examination: grossly full strength in all extremities Motor examination - right side: 5/5: deltoids, biceps, triceps, wrist flexion, wrist extension, pottery decorator, hip flexors, tibialis Anterior, quadriceps, toe extension (EHL), plantarflexion Motor examination - left side: 5/5: deltoids, biceps, triceps, wrist flexion, wrist extension, hip flexors, pottery decorator, quadriceps, tibialis Anterior, toe extension (EHL), plantarflexion Detailed sensory examination: intact Reflexes: Biceps: 2+, Triceps: 2+, Brachioradialis: 2+, Patella: 2+, Achilles: 1 + Mental Status Examination: awake, alert, oriented to person, oriented to place, oriented to time, follows commands appropriately, answers questions appropriately, makes eye contact, follows simple commands Cranial nerve examination: PERRL, EOMI, visual rice intact, corneal reflexes brisk symmetrically, sensory to face intact, mastication intact, no facial asymmetry is present, no dysarthria, hearing is intact symmetrically, soft palate elevates bilaterally upon phonation, flexes SCM and trapezius muscles symmetrically with full power, tongue protrudes midline, no atrophy or facial fasiculations present Cerebellar examination: no dysmetria, performs finger to nose and heel to huntley symmetrically without ataxia, no difficulty with rapid alternating movements Results - Laboratory Findings CBC and BMP: 02/01/17 01:41 02/01/17 01:41 Abnormal lab findings: Abnormal lab results WBC 11.7 K/mcL (4.3-11.1) H 02/01/17 01:41 RBC 3.81 M/mcL (4.19-5.50) L 02/01/17 01:41 Hgb 12.0 g/dL (12.9-16.9) L 02/01/17 01:41 Hct 37.1 % (37.5-50.1) L 02/01/17 01:41 Eosinophils # 0.7 K/mcL (0.0-0.6) H 02/01/17 01:41 Potassium 4.6 mEq/L (3.5-4.5) H 02/01/17 01:41 Chloride 110 mEq/L (98-109) H 02/01/17 01:41 Carbon Dioxide 18 mEq/L (19-29) L 02/01/17 01:41 BUN 28 mg/dL (8-26) H 02/01/17 01:41 Creatinine 2.15 mg/dL (0.72-1.25) H 02/01/17 01:41 POC Creatinine 2.30 mg/dL (0.70-1.30) H 01/31/17 14:16 POC Estimated GFR (eGFR) 28 (> 60) L 01/31/17 14:16 Est GFR ( Amer) 37 (> 60) L 02/01/17 01:41 Est GFR (Non-Af Amer) 30 (> 60) L 02/01/17 01:41 HDL Cholesterol 30 mg/dL (40-59) L 02/01/17 01:41 Consult Discharge Plan - Plan [facility]errals: [facility] [Primary Care Provider] - <Pedro Luis Silva - Last Filed: 02/01/17 17:38> Date of Encounter: 02/01/17 Time of Encounter: 16:16 Assessment and Plan (1) Syncope Current Visit: Yes Status: Acute Unfortunately I cannot give an exact mechanism to explain this gentleman's case. I does seem suspicious that shortly after he was given the eyedrops he became confused with decreased level of consciousness. He later experienced weakness of the right arm and right leg. This is since resolved. There are conflicting opinions about the results of the carotid Doppler, and the MRA scans. The EEG is yet pending, but should help to sort out a left hemispheric a. I would recommend having vascular take another look in hopes of settling the reporting discrepancies. I will reevaluate tomorrow. Qualifiers: Syncope type: unspecified Qualified Code(s): R55 - Syncope and collapse History of Present Illness HPI: Mr. Real is a 71 year old male who is seen for neurologic evaluation secondary to an episode of acute confusion with decreased levels of consciousness. The incident occurred on yesterday. He is at the [facility] here in [place] [facility] have an eye evaluation. He had been asymptomatic up until the time that the event occurred. He denied feeling ill or anything of that nature at morning. He took his morning medications as he usually does. He did not have a minimal at morning. He actually saw the doctor at about 920 that morning. Shortly after the ophthalmologists put drops in his eyes he apparently slumped over and had decreased levels of consciousness. He was initially taken to an urgent care and then transferred to the [facility]. He is still somewhat confused upon arrival here. Apparently he is having some difficulty with right lower extremity strength. MRI scan of the brain was performed and revealed no evidence of any acute process. Apparently carotid Doppler study reveals an occluded right internal carotid artery. The radiologist's interpretation of the MRA scan of the neck however demonstrates greater than 50% right and less than 50% left internal carotid artery stenosis with the with occlusion of the distal cervical petrous and cavernous segments of the right internal carotid artery. This seems to be a discrepancy in the recording between the carotid Doppler study in the MRA scan of the neck. Patient is currently back to his normal baseline. EEG was completed however interpretation is yet pending. All Systems: A 10-system review of systems was performed and is negative for pertinent findings except as documented above in the HPI. Review of Systems: As above. Physical Examination - Vital Signs Vital Signs: Initial Vital Signs Temp Pulse Resp BP Pulse Ox 98.6 F 52 16 150/66 97 01/31/17 11:13 01/31/17 11:13 01/31/17 11:13 01/31/17 11:13 01/31/17 11:13 - Neurologic Motor examination - right side: 4/5: hip flexors, quadriceps, toe extension (EHL ), 5/5: tibialis Anterior, plantarflexion Motor examination - left side: 4/5: deltoids, triceps, 5/5: biceps, wrist flexion, wrist extension, hip flexors, pottery decorator, quadriceps, tibialis Anterior, toe extension (EHL), plantarflexion Results - Laboratory Findings CBC and BMP: 02/01/17 01:41 02/01/17 01:41 Abnormal lab findings: Abnormal lab results WBC 11.7 K/mcL (4.3-11.1) H 02/01/17 01:41 RBC 3.81 M/mcL (4.19-5.50) L 02/01/17 01:41 Hgb 12.0 g/dL (12.9-16.9) L 02/01/17 01:41 Hct 37.1 % (37.5-50.1) L 02/01/17 01:41 Eosinophils # 0.7 K/mcL (0.0-0.6) H 02/01/17 01:41 Potassium 4.6 mEq/L (3.5-4.5) H 02/01/17 01:41 Chloride 110 mEq/L (98-109) H 02/01/17 01:41 Carbon Dioxide 18 mEq/L (19-29) L 02/01/17 01:41 BUN 28 mg/dL (8-26) H 02/01/17 01:41 Creatinine 2.15 mg/dL (0.72-1.25) H 02/01/17 01:41 POC Creatinine 2.30 mg/dL (0.70-1.30) H 01/31/17 14:16 POC Estimated GFR (eGFR) 28 (> 60) L 01/31/17 14:16 Est GFR ( Amer) 37 (> 60) L 02/01/17 01:41 Est GFR (Non-Af Amer) 30 (> 60) L 02/01/17 01:41 HDL Cholesterol 30 mg/dL (40-59) L 02/01/17 01:41
--- NOTE | 2017-02-01 15:06 | ECHO - Doppler Report ---
Echocardiogram Name: Hiren Real Date of Study: 02/01/2017 Date: 1945 Ht: 68.0 in Medical Record#: [id number] Age: 71 Wt: 140.0 lb Gender: Male BSA: 1.76 Order #: [id number] Location: [facility] Room #: [id number] Reading Physician: Beny Peralta DO, SUHA REAVES Coil Assembler: Livan Lafleur RN Ordering Physician: Avril Carcamo CNP Primary Physician: [facility] Indications: Syncope Impressions: LVEF 60-65%. Normal LV chamber size and function. Asymmetric hypertrophy of the basal septum. Systolic anterior motion of the mitral valve leaflets. No LVOT obstruction by Doppler. Moderate left ventricular diastolic dysfunction. Normal right ventricular structure and function. No evidence of pulmonary hypertension. No significant valvular dysfunction. Left Ventricular Wall Motion: Rest Echo Findings All wall segments showed normal motion. Findings: Study Quality * Technically adequate exam. ECG Findings * Sinus bradycardia. Left Ventricle * LVEF 60-65%. * Normal LV chamber size and function. * Asymmetric hypertrophy of the basal septum. * Systolic anterior motion of the mitral valve leaflets. No LVOT obstruction by Doppler. * Moderate left ventricular diastolic dysfunction. Right Ventricle * Normal right ventricular structure and function. Left Atrium * Mildly dilated left atrium. Right Atrium * Normal right atrial size. Interatrial Septum * Interatrial septum not well evaluated. Aortic Valve * Trileaflet aortic valve with normal function. * No aortic regurgitation. * No aortic stenosis. Mitral Valve * No mitral regurgitation. * No mitral stenosis. * Normal mitral valve structure. Tricuspid Valve * Normal tricuspid valve structure and function. * Trace tricuspid regurgitation. * No evidence of pulmonary hypertension. Pulmonic Valve * Pulmonic valve not well visualized. * No pulmonic regurgitation. Aorta * Normally sized aortic root. Pericardium * The pericardium appears normal. * Appearance is consistent with a {type} mitral valve replacement. Function appears {function{. IVC * Normal IVC dimensions and inspiratory collapse. Pulmonary Artery * Normal visualized portions of the main pulmonary artery. History Hypertension Hypercholesteremia History of Smoking Years 40 Packs 1 Family History of CAD Measurements: BP: 170/ 87 2D Normal Values RVIDd: 2.60 cm <2.7 cm IVSd: 1.40 cm 0.6 - 1.0 cm LVIDd: 3.60 cm 3.7 - 5.6 cm LVPWd: 1.20 cm 0.6 - 1.1 cm LVIDs: 2.60 cm 1.5 - 3.6 cm LA: 3.20 cm 2.0 - 4.0cm %FS: 27.80 cm >25 % LVOT Diam: 1.60 cm LA volume: 55 Mitral Valve Peak E:.72 m/sec Peak A:.57 m/sec E/A Ratio:1.3 Peak E' Lat Aryan:7.31 cm/s Peak E' Med Aryan:6.82 cm/s E/E' Lat Ratio:9.9 E/E' Med Ratio:10.6 Tricuspid Valve TV Regurg Peak Grad: 17.00mmHg TV Regurg Peak Aryan: 2.08m/sec Updated by Beny Peralta DO, FACDoc, GERARDO BORDEN on 02/01/2017 3:00:25 PM electronically signed on 02/01/2017 3:01:59 PM with status of Final Wall Motion Gomes: 1=Normal, 2=Hypokinesis, 3=Akinesis, 4=Dyskinesis, 5=Aneurysmal, 6=Hyperkinetic, X=Not Visualized (Blank)=Missing
[2017-02-01] MEDS: 0.9 % Sodium Chloride 1,000 ML IVC SCH (15:24)
--- NOTE | 2017-02-01 15:36 | Internal Med Progress Note ---
<Ryan Wilkins - Last Filed: 02/01/17 16:52> Date of Encounter: 02/01/17 Time of Encounter: 15:34 - Assessment and plan (1) Syncope Current Visit: Yes Status: Acute Assessment and plan: 71-year-old male presents after having a syncopal episode and 2 episodes of shaking at the [place]. Patient denies any of these symptoms in the past. States few years ago he had a bug run into his right eye which substantially decreased his right vision and now he has right sided headaches. After his passing out episode had this headache. MRI was negative for infarct, mass. 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 MRA also showed a 50% occlusion of the left ICA. Vascular surgery saw this patient and deemed him not eligible for carotid endarterectomy. Later this morning patient had a acute onset of right upper and right lower extremity weakness. At that time his and NIHSS scale was 5. He underwent a CT of the head which was negative for bleed. According to the records he has a history of a anterior cerebral artery aneurysm however this was not seen in the MRA head. Patient was evaluated by neurologist. He had an EEG today and results are pending. He also had an echocardiogram today that showed an EF of 60-65% with no valvular dysfunction, except for systolic anterior motion of the mitral valve leaflets. There was no wall motion abnormality, LVOT. Unclear if patient's syncopal episode and acute onset of right upper and lower extremity weakness are related. Syncopal episode may be due to eyedrops used to dilate pupils for ophthalmalgic , evaluation. Patient is to shaking events at the [facility] urgent care for short, he did not have a postictal state, and patient states that he was awake during those episodes. Start aspirin. Qualifiers: Syncope type: unspecified Qualified Code(s): R55 - Syncope and collapse (2) CAD (coronary artery disease) Current Visit: Yes Status: Acute Assessment and plan: hx of CAD. Continue carvedilol, Imdur, atorvastatin. We will increase atorvastatin to 40 mg daily. Patient's LDL is 81. HDL is 30. Qualifiers: Coronary Disease-Associated Artery/Lesion type: unspecified vessel or lesion type [place] vs. transplanted heart: crow heart Associated angina: without angina Qualified Code(s): I25.10 - Atherosclerotic heart disease of crow coronary artery without angina pectoris (3) Tobacco abuse Current Visit: Yes Status: Acute Assessment and plan: Had extensive conversation about smoking cessation. Currently patient has no intention to quit. He understands that smoking increases the risk of stroke and cardiac disease. (4) Carotid artery stenosis Current Visit: Yes Status: Chronic Qualifiers: Laterality: bilateral Qualified Code(s): I65.23 - Occlusion and stenosis of bilateral carotid arteries (5) Dementia Current Visit: Yes Status: Acute Assessment and plan: alert and oriented x 2. Patient seems to forget the reason he is admitted to hospital. Oriented to place and time. Continue donepezil . Qualifiers: Dementia type: vascular dementia - Subjective Interval history: Patient was found to have right upper extremity and lower extremity weakness at 9:00AM that was new in onset, not present at admission. NISHSS scale 5 initially for right leg and right arm motor drift. Repeat NIHSS scale at 9:10 was 3 for right leg motor drift and had 5/5 strength of right upper extremity. Patient was sent stat for CT head. CT head was negative. This history was obtained in the afternoon: Patient's states that they were at the [facility] where he was having his routine eye exam. Patient had his eyes dilated. Few minutes thereafter he was found unresponsive laying on the chair with his head down. Patient's tried to wake him up however she is unsuccessful. Patient was unconscious for 2-3 minutes. When he regained consciousness he was alert but not oriented to place time or situation. Patient does remember being transferred to [facility]. At the urgent care he had 2 episodes of shaking. He says he remembers both episodes. denies any signs of confusion after each episode of shaking. He denies any history of seizures. Patient has had 2 episodes of head trauma from falls. Patient has a chronic right ICA 100% occlusion. MRA found a left ICA occlusion 50%. MRI was negative for infarct. - Constitutional Vitals: Temp Pulse Resp BP Pulse Ox 97.8 F 68 20 170/87 98 02/01/17 11:21 02/01/17 11:21 02/01/17 11:21 02/01/17 11:21 02/01/17 11:21 General appearance: Present: cooperative, A&O X 3, pleasant, no acute distress - Head Head exam: Present: atraumatic, normocephalic - Eye Eye exam: Present: PERRL, conjuntiva pink, sclera anicteric Pupils: Present: PERRL - Neck Neck exam general surgery: Present: supple, trachea midline. Absent: lymphadenopathy - Respiratory Respiratory exam: Present: CTAB. Absent: accessory muscle use, rales, rhonchi, wheezes - Cardiovascular Cardiovascular exam: Present: RRR, +S1, +S2. Absent: diastolic murmur, gallop, rubs, systolic murmur - GI/Abdominal GI/Abdominal exam: Present: normal bowel sounds, soft, no peritoneal signs. Absent: distended, tenderness - Extremities Exam Extremities exam: Present: warm, radial pulses palpable and symetrical. Absent : calf tenderness, cyanotic, pedal edema - Neurological Exam Neurological exam: Present: CN II-XII intact, oriented X3, no focal deficits. Absent: strengths equal and symetr throughout (Lower extremity strength 5 out of 5. Upper extremity strength is 4 out of 5 on left shoulder abduction otherwise upper extremity strength is 5 out 5), pronater drift, facial droop, speech deficit - Skin Skin exam: Present: dry, intact Internal Medicine: Result - Labs CBC & Chem 7: 02/01/17 01:41 02/01/17 01:41 Labs: Short CBC 02/01/17 Range/Units 01:41 WBC 11.7 H (4.3-11.1) K/mcL Hgb 12.0 L (12.9-16.9) g/dL Hct 37.1 L (37.5-50.1) % Plt Count 240 (140-400) K/mcL Neutrophils # 5.9 (1.6-8.9) K/mcL BMP 02/01/17 01:41 Sodium 140 Potassium 4.6 H Chloride 110 H Carbon Dioxide 18 L BUN 28 H Creatinine 2.15 H Glucose 77 Calcium 9.0 Cardiac Enzymes 01/31/17 02/01/17 02/01/17 Range/Units 19:37 01:41 06:52 Troponin I 0.01 0.02 0.01 (0-0.03) ng/mL - Impressions Impressions Head CT 02/01/17 09:10 IMPRESSION: Atrophy and small vessel ischemic disease. Left maxillary sinus disease. D/ / Minor Valdovinos MD / Minor Valdovinos MD Interpreting Provider: Minor Valdovinos MD Consult Discharge Plan - Plan [facility]errals: [facility] [Primary Care Provider[facility] - <Hamilton Orlando - Last Filed: 02/01/17 19:20> Date of Encounter: 02/01/17 - Assessment and plan (1) Syncope Current Visit: Yes Status: Acute Qualifiers: Syncope type: unspecified Qualified Code(s): R55 - Syncope and collapse (2) CAD (coronary artery disease) Current Visit: Yes Status: Chronic Qualifiers: Coronary Disease-Associated Artery/Lesion type: crow artery Qualified Code(s): I25.10 - Atherosclerotic heart disease of crow coronary artery without angina pectoris (3) Carotid artery stenosis Current Visit: Yes Status: Chronic Qualifiers: Laterality: bilateral Qualified Code(s): I65.23 - Occlusion and stenosis of bilateral carotid arteries (4) Dementia Current Visit: Yes Status: Acute Qualifiers: Dementia type: vascular dementia Dementia behavioral disturbance: without behavioral disturbance Qualified Code(s): F01.50 - Vascular dementia without behavioral disturbance (5) HTN (hypertension) Current Visit: Yes Status: Chronic Qualifiers: Hypertension type: essential hypertension Qualified Code(s): I10 - Essential (primary) hypertension (6) Hyperlipidemia Current Visit: Yes Status: Chronic Qualifiers: Hyperlipidemia type: mixed hyperlipidemia Qualified Code(s): E78.2 - Mixed hyperlipidemia - Constitutional Vitals: Temp Pulse Resp BP Pulse Ox 97.4 F L 53 16 160/77 95 02/01/17 16:12 02/01/17 16:12 02/01/17 16:12 02/01/17 16:12 02/01/17 16:12 Internal Medicine: Result - Labs CBC & Chem 7: 02/01/17 01:41 02/01/17 01:41 - Attending Attestation I examined this patient and my medical decision-making was reviewed with the Resident Physician on 02/01/17. I agree with the documented findings, disposition and treatment plan as described except to the extent set forth below. Mr. Real is currently admitted for acute syncopal episode. He is moderate to high risk due to potential for worsening neuro status Mr. Real had episode of R side weakness this AM - CT negative. Currently at near baseline. No CP or SOB. No fever or chills. Exam Alert. Comfortable Heart reg Lungs clear I/P 1. Syncope - neuro to see 2. HTN Further diagnoses and plan as above.
--- NOTE | 2017-02-01 17:56 | EEG/EMG/Oth Biometrics Report ---
EEG Procedure Report Date of procedure: 02/01/17 EEG Procedure: Routine EEG Procedure Note: This is a report of a 21 channel bipolar and referential montage EEG. A posterior dominant rhythm of 8-9 Hz moderate voltage alpha frequencies identified symmetrically and the posterior head regions. This rhythm attenuates symmetrically with eye opening. Superimposed beta frequencies identified in the frontal leads symmetrically. Hyperventilation is not performed in the recording. Periods of drowsiness and stage II sleep identifies reference by dropout of posterior dominant rhythm, and the emergence of vertex activity K complexes and sleep spindles. Photic stimulation is performed and produces a symmetric driving response. The EKG rhythm strip reveals sinus bradycardia ranging between 42 and 48 bpm. Impressions: This EEG recording is within normal limits. There is no evidence of epileptiform activity identified during the study. Comment: sinus bradycardia ranging from 42-48 bpm's identified. This could perhaps resulted in syncopal episodes. I might recommend cardiology evaluation Please correlate clinically. The documentation in the history of HPI and plan were at least partially created by travayl voice recognition technology by Dr. Silva. Errors in grammar, wording or other phrases may exist. If errors are found after the documentation signed, they will be addressed individually in the addendum section of this document when appropriate.
[2017-02-01] MEDS: Aspirin 81 MG TAB.CHEW PO SCH (21:13)
[2017-02-02 04:04] LABS: Basophils # 0.1 K/mcL (0.0-0.2); Basophils % 0.5 %; Eosinophils # 0.8 K/mcL (0.0-0.6); Eosinophils % 7.7 %; Hematocrit 33.9 % (37.5-50.1); Hemoglobin 11.4 g/dL (12.9-16.9); Immature Granulocytes % 0.2 % (0-4); Lymphocytes # 4.4 K/mcL (0.6-4.6); Lymphocytes % 40.5 %; Mean Corpuscular HGB Conc 33.6 g/dL (31.6-35.5); Mean Corpuscular Hemoglobin 32.2 pg (28.0-33.3); Mean Corpuscular Volume 95.8 fL (83.0-100.0); Monocytes % 9.4 %; Neutrophils # 4.5 K/mcL (1.6-8.9); Platelet Count 211 K/mcL (140-400); Red Blood Count 3.54 M/mcL (4.19-5.50); Segmented Neutrophils % 41.7 %
[2017-02-02 04:21] LABS: Calcium 8.6 mg/dL (8.6-10.8); Magnesium 1.9 mg/dL (1.6-2.6); Potassium 3.9 mEq/L (3.5-4.5)
[2017-02-02] MEDS: *HR* Heparin 5,000 UNIT/ML VIAL SQ SCH (06:12)
--- NOTE | 2017-02-02 08:44 | Nephrology Progress Note ---
Date of Encounter: 02/02/17 Time of Encounter: 08:35 - Assessment and Plan (1) CKD (chronic kidney disease) Current Visit: Yes Status: Acute CKD stage 3 in setting of HTN. Baseline creat 1.9-2.1. Creat today 1.88. Syncope with known carotid artery stenosis. EEG findings essentially negative, though bradycardic 42-48 which could be cause of syncope. Recommend Cardiology consult. Will continue to monitor. Qualifiers: Chronic kidney disease stage: stage 3 (moderate) Qualified Code(s): N18.3 - Chronic kidney disease, stage 3 (moderate) Subjective Interval history: Sitting on edge of bed, states feeling good, no further syncopal episodes Objective - Vital Signs Vital signs: Vital Signs Temp Pulse Resp BP Pulse Ox 02/02/17 07:32 97.8 F 60 16 154/73 97 02/02/17 04:43 97.7 F 58 18 154/91 98 02/01/17 20:56 98.2 F 56 16 152/69 97 02/01/17 16:12 97.4 F L 53 16 160/77 95 Intake and Output 02/01/17 02/02/17 02/02/17 23:59 07:59 15:59 Intake Total 240 / 240 0 / 0 Output Total 300 / 300 Balance 240 / 240 -300 / -300 Intake: Oral 240 / 240 0 / 0 Output: Urine 300 / 300 Other: Percent of Meal Consumed 100% # Voids 0 0 Weight 63.5 kg Patient Weight 02/02/17 23:59 Weight 63.5 kg - General Appearance General appearance: Present: well-developed, well-nourished, appears started age EENT: Present: mucous membranes moist Neck: Present: no JVD Respiratory: Present: clear Cardiology: Present: no edema, regular rate, regular rhythm Gastrointestinal: Present: normoactive bowel sounds, no tenderness Integumentary: Present: warm and dry Neurologic: Present: alert and oriented x3 Psychiatric: Present: mood/affect appropriate, cooperative - Lab 02/02/17 03:45 02/02/17 03:45 Most recent lab results Calcium 8.6 mg/dL (8.6-10.8) 02/02/17 03:45 Magnesium 1.9 mg/dL (1.6-2.6) 02/02/17 03:45 Consult Discharge Plan - Plan [facility]errals: [facility] [Primary Care Provider] -
--- NOTE | 2017-02-02 09:42 | Neurology Progress Note ---
<Olegario Santillan - Last Filed: 02/02/17 09:40> Date of Encounter: 02/02/17 Time of Encounter: 08:10 Assessment and Plan (1) Syncope Current Visit: Yes Status: Acute All symptoms have resolved at this time. No acute findings on CT head. EEG was unrevealing for any sort of encephalopathy or lateralization, however the patient did have episodes of bradycardia into the 40s during the EEG. Episodes of syncope more likely cardiac in origin. Still do not have a good explanation for the transient weakness that the patient experienced after his syncopal episodes, although the weakness has resolved and he has not had any repeat symptoms. Recommend cardiac evaluation. Qualifiers: Syncope type: unspecified Qualified Code(s): R55 - Syncope and collapse Subjective Principal diagnosis: Syncope Interval history: The patient was seen and examined. He has not had any repeat episodes of syncope overnight. He denies any weakness at this time, and states that he is feeling quite well. It was noted that during his EEG he had episodes of bradycardia into the 40s. Objective - Constitutional Vitals: Temp Pulse Resp BP Pulse Ox 97.8 F 60 16 154/73 97 02/02/17 07:32 02/02/17 07:32 02/02/17 07:32 02/02/17 07:32 02/02/17 07:32 General appearance: Present: A&O X 3 - Neurological Exam Sensorimotor examination: Present: intact Motor Examination: Present: grossly full strength in all extremities Motor examination - right side: 5/5: deltoids, biceps, triceps, wrist flexion, wrist extension, medical receptionist medical assistant, hip flexors, tibialis Anterior, quadriceps, toe extension (EHL), plantarflexion Motor examination - left side: 5/5: deltoids, biceps, triceps, wrist flexion, wrist extension, hip flexors, medical receptionist medical assistant, quadriceps, tibialis Anterior, toe extension (EHL), plantarflexion Sensation intact: Present: intact Reflexes: Biceps: 2+, Triceps: 1+, Brachioradialis: 2+, Patella: 2+, Achilles: 1 + Mental Status Examination: Present: awake, alert, oriented to person, oriented to place, oriented to time, follows commands appropriately, answers questions appropriately, makes eye contact, follows simple commands Cranial nerve examination: Present: PERRL, EOMI, visual rice intact, corneal reflexes brisk symmetrically, sensory to face intact, mastication intact, no facial asymmetry is present, no dysarthria, hearing is intact symmetrically, soft palate elevates bilaterally upon phonation, flexes SCM and trapezius muscles symmetrically with full power, tongue protrudes midline, no atrophy or facial fasiculations present Cerebellar examination: Present: no dysmetria, performs finger to nose and heel to [place] symmetrically without ataxia, no difficulty with rapid alternating movements Results - Laboratory Findings CBC and BMP: 02/02/17 03:45 02/02/17 03:45 Abnormal lab findings: Abnormal lab results RBC 3.54 M/mcL (4.19-5.50) L 02/02/17 03:45 Hgb 11.4 g/dL (12.9-16.9) L 02/02/17 03:45 Hct 33.9 % (37.5-50.1) L 02/02/17 03:45 Eosinophils # 0.8 K/mcL (0.0-0.6) H 02/02/17 03:45 Chloride 113 mEq/L (98-109) H 02/02/17 03:45 Creatinine 1.88 mg/dL (0.72-1.25) H 02/02/17 03:45 POC Creatinine 2.30 mg/dL (0.70-1.30) H 01/31/17 14:16 POC Estimated GFR (eGFR) 28 (> 60) L 01/31/17 14:16 Est GFR ( Amer) 43 (> 60) L 02/02/17 03:45 Est GFR (Non-Af Amer) 36 (> 60) L 02/02/17 03:45 Glucose 115 mg/dL (70-99) H 02/02/17 03:45 HDL Cholesterol 30 mg/dL (40-59) L 02/01/17 01:41 Consult Discharge Plan - Plan [facility]errals: [facility] [Primary Care Provider] - <Pedro Luis Silva - Last Filed: 02/02/17 10:28> Date of Encounter: 02/02/17 Time of Encounter: 10:25 Assessment and Plan (1) Syncope Current Visit: Yes Status: Acute As above. Recommend vascular reassessment as an outpatient to more clearly delineate the discrepancies between the carotid Doppler, and the CTA scan. We will reevaluate your request. Qualifiers: Syncope type: unspecified Qualified Code(s): R55 - Syncope and collapse Subjective Interval history: Chart was reviewed, patient was seen and examined independently, case was discussed with Dr. Santillan, and the hospitalist team. I agree with Dr. Santillan's statement as above. Objective - Constitutional Vitals: Temp Pulse Resp BP Pulse Ox 97.8 F 60 16 154/73 97 02/02/17 07:32 02/02/17 07:32 02/02/17 07:32 02/02/17 07:32 02/02/17 07:32 - Neurological Exam Motor Examination: Present: grossly full strength in all extremities, other ( There is some weakness of the left shoulder girdle which is old.) Motor examination - left side: 3/5: deltoids Mental Status Examination: Present: answers questions appropriately (Patient does however have some baseline dementia.) Results - Laboratory Findings CBC and BMP: 02/02/17 03:45 02/02/17 03:45 Abnormal lab findings: Abnormal lab results RBC 3.54 M/mcL (4.19-5.50) L 02/02/17 03:45 Hgb 11.4 g/dL (12.9-16.9) L 02/02/17 03:45 Hct 33.9 % (37.5-50.1) L 02/02/17 03:45 Eosinophils # 0.8 K/mcL (0.0-0.6) H 02/02/17 03:45 Chloride 113 mEq/L (98-109) H 02/02/17 03:45 Creatinine 1.88 mg/dL (0.72-1.25) H 02/02/17 03:45 POC Creatinine 2.30 mg/dL (0.70-1.30) H 01/31/17 14:16 POC Estimated GFR (eGFR) 28 (> 60) L 01/31/17 14:16 Est GFR ( Amer) 43 (> 60) L 02/02/17 03:45 Est GFR (Non-Af Amer) 36 (> 60) L 02/02/17 03:45 Glucose 115 mg/dL (70-99) H 02/02/17 03:45 HDL Cholesterol 30 mg/dL (40-59) L 02/01/17 01:41
[2017-02-02 10:52] VITALS: BP 160/76
[2017-02-02] MEDS: Isosorbide MONOnitrate (24 HR) 30 MG TAB.ER.24H PO SCH (10:52)
[2017-02-02] MEDS: Aspirin 81 MG TAB.CHEW PO SCH (10:52)
[2017-02-02] MEDS: amLODIPine 5 MG TABLET PO SCH (10:52)
[2017-02-02] MEDS: Loratadine 10 MG TABLET PO SCH (10:52)
--- NOTE | 2017-02-02 11:14 | Cardiology Consult Note ---
Date of Encounter: 02/02/17 Time of Encounter: 10:15 Assessment and Plan (1) Syncope Current Visit: Yes Status: Acute Underwent extensive work-up for syncope. Unknown eitology. Seen to have bradycardia with HR as low as 40 bpm but no pauses. Denies symptoms with HR in the 40's. MRI/MRA was negative for acute CVA. There was a chronic distal occlusion of the right ICA. 50% stenosis in the mid left ICA. Evaluated by vascular sugery and continued medical management recommended. EKG showed bradycardia, HR 55 bpm, no acute ST changes. Troponin negative. TTE showed preserved LV function. Asymmetric hypertrophy of the basal septum. TYRON of the mitral valve leaflets with no LVOT obstruction. There was moderate diastolic dysfunction. No significant valvular disease. EEG was negative. He was noted to be bradycardic. 24 hour telemetry review shows SR-SB. AVg HR 54 BPM. Minimum HR 40 bpm. HR in the 40's seen during waking hours. No significant pauses. Occasional 4-5 beat runs of atrial tachycardia. He is on both carvedilol and aricept. Both can cause bradycardia. Decrease carvedilol. Recommend 48 hour holter at discharge. No recurrent episodes since admission. Out patient f/u will be scheduled in 2 weeks with [facility]. Qualifiers: Syncope type: unspecified Qualified Code(s): R55 - Syncope and collapse (2) Carotid artery stenosis Current Visit: Yes Status: Chronic Seen by vascular surgery. Chronic distal right ICA stenosis. 50% LICA stenosis. Surgery is not recommended at this point by vascular surgery. Smoking cessation discussed. Recommend asa and statin therapy. Qualifiers: Laterality: bilateral Qualified Code(s): I65.23 - Occlusion and stenosis of bilateral carotid arteries (3) CAD (coronary artery disease) Current Visit: Yes Status: Chronic Discussed h/o CAD. Reports LHC over 15 years ago. No history of stents or CABG. [facility] lists history of CAD. Currently denies chest pain. Troponins negative. EKG with no concerning ST changes. TTE shows preserved EF. Continue asa, statin, and lower dose of bb. Qualifiers: Coronary Disease-Associated Artery/Lesion type: tribe artery Qualified Code(s): I25.10 - Atherosclerotic heart disease of tribe coronary artery without angina pectoris Discussion w patient/family: The assessment and plan as outlined above was discussed with the patient and/or family members who expressed understanding and agreement. All questions were answered. Thank you for involving us in the care of your patient. Please call with any questions. History of Present Illness Consult date: 02/02/17 Requesting physician: Hamilton Orlando Consult reason: Syncope Chief complaint: "passed out" History of present illness: Mr. Real is a 71 year old male who presented after witness loss of consciousness. He has a past medical history of non-obstructive CAD, PVD, known right distal carotid occlusion, AAA at 3.2 CM in 2013, hypertension, hyperlipidemia, TIA, COPD, CKD stage III, dementia, and heavy tobacco use. He was undergoing an eye exam at the [facility] when the event occurred. He received eye drops to dilate his pupils. Moments later he was found by his slumped over in the chair he was sitting in. He was unconscious for 1-2 minutes per his and was leaning to one side. Once he woke he was crying out and moaning. He was transferred to [facility] and underwent extensive work-up. Initial CT of the brain at the [facility] showed concern for possible small aneurysm. Repeat scans here at [facility] showed no brain aneurysm. MRI/MRA was negative for acute CVA. There was a chronic distal occlusion of the right ICA. 50% stenosis in the mid left ICA. EKG showed bradycardia, HR 55 bpm, no acute ST changes. Troponin negative. TTE showed preserved LV function. Asymmetric hypertrophy of the basal septum. TYRON of the mitral valve leaflets with no LVOT obstruction. There was moderate diastolic dysfunction. No significant valvular disease. EEG was negative. He was noted to be bradycardic during exam and cardiology consult was recommended. During his hospital stay he developed brief episode of one sided weakness. Repeat CT scan of the brain showed no acute events, Past Med Surg Social Fam HX - Past Medical History Attestation: Yes The following information was validated with the patient. Medical history: aortic aneurysm, arthritis, cancer, COPD, coronary artery disease, GERD, hyperlipidemia, hypertension, renal disease Psychiatric history: no psych history - Past Surgical History Surgical History: non-contributory - Social History Smoking Status: Current every day smoker Smokeless Tobacco Status: No Alcohol use: none Drug use: none - Family History Father Cause of : CT at age 42 Medications and Allergies Acetaminophen [Tylenol] 650 mg PO Q6HR PRN 01/31/17 [History] Albuterol Sulfate [Albuterol Inhaler] 2 puff IH QID PRN 01/31/17 [History] Amlodipine Besylate 10 mg PO DAILY 01/31/17 [History] Atorvastatin Calcium [Lipitor] 20 mg PO HS 01/31/17 [History] Carvedilol [Coreg] 6.25 mg PO BIDWM 01/31/17 [History] Cetirizine HCl [Zyrtec] 10 mg PO DAILY 01/31/17 [History] Clotrimazole 1% CRM [Lotrimin 1%] 1 appl TP 2-3XD PRN 01/31/17 [History] Donepezil HCl [Aricept] 5 mg PO DAILY 01/31/17 [History] Hydrophilic Cream [Basle] 1 appl TP BID PRN 01/31/17 [History] Isosorbide MONOnitrate [Isosorbide Mononitrate] 20 mg PO BID 01/31/17 [History] Losartan Potassium [Cozaar] 100 mg PO DAILY 01/31/17 [History] Ranitidine HCl [Zantac] 150 mg PO BID 01/31/17 [History] Allergies No Known Allergies Allergy (Verified 01/31/17 11:27) All Systems Review: A 10-system review of systems was performed and is negative for pertinent findings except as documented above in the HPI. Physical Examination Vital Signs, Last 4 Hours Temp Pulse Resp BP Pulse Ox 02/02/17 07:32 97.8 F 60 16 154/73 97 General: Conversant, No Apparent Distress HEENT: Atraumatic, Normocephaly, Mucus Membranes Moist Neck: No JVD, Normal carotid pulses Cardiac: Reg Rate and Rhythm, Normal S1 and S2, No Murmur Lungs: Normal Breath Sounds, No Wheeze, Rales, Rhonchi Neuro: Alert and responsive, No focal deficits noted Abdomen: Soft, Non-Tender Skin: No rashes noted on visualized skin Musculoskeletal: No Chest Wall Tenderness Extremities: No Clubbing, No Cyanosis, No Edema, Normal Pulses Results 02/02/17 03:45 02/02/17 03:45 Lab Results 02/02/17 02/02/17 03:45 03:45 WBC 10.9 Hgb 11.4 L Hct 33.9 L Plt Count 211 Sodium 141 Potassium 3.9 Chloride 113 H Carbon Dioxide 21 BUN 25 Creatinine 1.88 H Glucose 115 H Calcium 8.6 Magnesium 1.9 - Imaging and Cardiology Echo: report reviewed - EKG Interpretation EKG results cardiology: personally reviewed, other Consult Discharge Plan - Plan Referrals: [facility] [Primary Care Provider] -
--- NOTE | 2017-02-02 14:20 | Discharge Summary ---
<Ryan Wilkins - Last Filed: 02/02/17 16:20> Date of Encounter: 02/02/17 Time of Encounter: 14:17 - Discharge Diagnosis (1) Syncope Priority: Primary Status: Acute Qualifiers: Syncope type: unspecified Qualified Code(s): R55 - Syncope and collapse (2) CAD (coronary artery disease) Priority: Secondary Status: Acute Qualifiers: Coronary Disease-Associated Artery/Lesion type: unspecified vessel or lesion type [place] vs. transplanted heart: elem heart Associated angina: without angina Qualified Code(s): I25.10 - Atherosclerotic heart disease of elem coronary artery without angina pectoris (3) Tobacco abuse Priority: Secondary Status: Acute (4) Carotid artery stenosis Priority: Secondary Status: Chronic Qualifiers: Laterality: bilateral Qualified Code(s): I65.23 - Occlusion and stenosis of bilateral carotid arteries (5) Dementia Priority: Secondary Status: Acute Qualifiers: Dementia type: vascular dementia Dementia behavioral disturbance: without behavioral disturbance Qualified Code(s): F01.50 - Vascular dementia without behavioral disturbance - Discharge Medications Prescriptions: Aspirin 81 mg PO DAILY #30 tab.chew Atorvastatin [Lipitor] 40 mg PO HS #30 tablet Carvedilol [Coreg] 3.125 mg PO BIDWM #60 tablet Home Medications: Acetaminophen [Tylenol] 650 mg PO Q6HR PRN 01/31/17 [History] Albuterol Sulfate [Albuterol Inhaler] 2 puff IH QID PRN 01/31/17 [History] Amlodipine Besylate 10 mg PO DAILY 01/31/17 [History] Cetirizine HCl [Zyrtec] 10 mg PO DAILY 01/31/17 [History] Clotrimazole 1% CRM [Lotrimin 1%] 1 appl TP 2-3XD PRN 01/31/17 [History] Donepezil HCl [Aricept] 5 mg PO DAILY 01/31/17 [History] Hydrophilic Cream [Basle] 1 appl TP BID PRN 01/31/17 [History] Isosorbide MONOnitrate [Isosorbide Mononitrate] 20 mg PO BID 01/31/17 [History] Losartan Potassium [Cozaar] 100 mg PO DAILY 01/31/17 [History] Ranitidine HCl [Zantac] 150 mg PO BID 01/31/17 [History] Aspirin 81 mg PO DAILY #30 tab.chew 02/02/17 [Rx] Atorvastatin [Lipitor] 40 mg PO HS #30 tablet 02/02/17 [Rx] Carvedilol [Coreg] 3.125 mg PO BIDWM #60 tablet 02/02/17 [Rx] Allergies/Adverse Reactions: Allergies No Known Allergies Allergy (Verified 01/31/17 11:27) Procedures/tests Complete & Pending: Procedures Performed prior 72 hours Category Date Time Status ECG 48 holter monitor setup [ECG] Routine Y 02/02/17 11:39 Ordered Date of admission: 02/01/17 14:28 Primary care physician: PCP [facility] Consults: 02/01/17 14:46 Consult to Interpret Exam [CONS] Routine Consulting Provider: Pedro Luis Silva Consult to Interpret Exam: Interpret EEG 02/02/17 08:03 Consult to Cardiology [CONS] Routine Comment: Consulting Provider: Cardiology Rachel Reason for Consult: Syncope. Noted to be bradycardic - ? cardiac cause of symptoms. Call Completed: Yes Discharging clinician: Ryan Wilkins Anticipated date of discharge: 02/02/17 - Patient Status Disposition: Home, Self-Care Condition: Good Functional capacity at discharge: independent ambulation Overall status at discharge: patient is progressing back to baseline - Discharge Instructions Instructions: Aspirin (By mouth), Atorvastatin (By mouth), Carvedilol (By mouth ), Holter Monitoring (GEN), Syncope (GEN), Ischemic Stroke (GEN), Hemorrhagic Stroke (GEN) Follow Up With: [place],PCP [Primary Care Provider] - Charlie Urena MD [Partnered Physician] - Additional Instructions: Please return to ER if you have facial drooping, slurred speech, passing out, seizure, one sided numbness, tingling, worsening confusion. Please follow up with cardiology appointment. - Diet and Activity Activity: increase activity as tolerated Diet: low fat, low cholesterol Interval History: 71-year-old male presents after having a syncopal episode and 2 episodes of shaking at the [place]. Patient denies any of these symptoms in the past. States few years ago he had a bug run into his right eye which substantially decreased his right vision and now he has right sided headaches. After his passing out episode had this headache. MRI was negative for infarct, mass. 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 MRA also showed a 50% occlusion of the left ICA. Vascular surgery saw this patient and deemed him not eligible for carotid endarterectomy. Later this morning patient had a acute onset of right upper and right lower extremity weakness. At that time his and NIHSS scale was 5. He underwent a CT of the head which was negative for bleed. According to the records he has a history of a anterior cerebral artery aneurysm however this was not seen in the MRA head. Patient was evaluated by neurologist. He had an EEG that was negative He also had an echocardiogram today that showed an EF of 60-65% with no valvular dysfunction, except for systolic anterior motion of the mitral valve leaflets. There was no wall motion abnormality, LVOT. During EEG patient's heart rate was noted to be in the 40s. Patient was felt by cardiology. He is on carvedilol and Aricept which was concussed bradycardia. Carvedilol was decreased to 3.125 mg BID. Started on aspirin and statin. Will d/c on outpatient holter monitor. Follow up with [facility] in 2 weeks. Follow up with PCP in 5-7 days. Hospital course: Mr. Real is a 71 year old male - Time Spent with Patient Total time spent providing and/or coordinating discharge services: - Constitutional Vitals: Temp Pulse Resp BP Pulse Ox 97.8 F 49 16 160/76 97 02/02/17 10:51 02/02/17 10:51 02/02/17 10:51 02/02/17 10:51 02/02/17 11:00 General appearance: Present: cooperative, A&O X 2 (oreiented to self and place and not to time or situation ), pleasant, no acute distress - Head Head exam: Present: atraumatic, normocephalic - Eye Eye exam: Present: PERRL, conjuntiva pink, sclera anicteric Pupils: Present: PERRL - Neck Neck exam general surgery: Present: supple, trachea midline. Absent: lymphadenopathy - Respiratory Respiratory exam: Present: CTAB. Absent: accessory muscle use, rales, rhonchi, wheezes - Cardiovascular Cardiovascular exam: Present: RRR, +S1, +S2. Absent: diastolic murmur, gallop, rubs, systolic murmur - GI/Abdominal GI/Abdominal exam: Present: normal bowel sounds, soft, no peritoneal signs. Absent: distended, tenderness - Extremities Exam Extremities exam: Present: warm, radial pulses palpable and symetrical. Absent : calf tenderness, cyanotic, pedal edema - Neurological Exam Neurological exam: Present: CN II-XII intact, no focal deficits. Absent: pronater drift, facial droop, speech deficit - Skin Skin exam: Present: dry, intact <Hamilton Orlando - Last Filed: 02/02/17 20:06> Date of Encounter: 02/02/17 - Discharge Diagnosis (1) Syncope Priority: Primary Status: Acute Qualifiers: Syncope type: unspecified Qualified Code(s): R55 - Syncope and collapse (2) CAD (coronary artery disease) Priority: Secondary Status: Chronic Qualifiers: Coronary Disease-Associated Artery/Lesion type: elem artery Qualified Code(s): I25.10 - Atherosclerotic heart disease of elem coronary artery without angina pectoris (3) Carotid artery stenosis Priority: Secondary Status: Chronic Qualifiers: Laterality: bilateral Qualified Code(s): I65.23 - Occlusion and stenosis of bilateral carotid arteries (4) Dementia Priority: Secondary Status: Acute Qualifiers: Dementia type: vascular dementia Dementia behavioral disturbance: without behavioral disturbance Qualified Code(s): F01.50 - Vascular dementia without behavioral disturbance (5) HTN (hypertension) Priority: Secondary Status: Chronic Qualifiers: Hypertension type: essential hypertension Qualified Code(s): I10 - Essential (primary) hypertension (6) Hyperlipidemia Priority: Secondary Status: Chronic Qualifiers: Hyperlipidemia type: mixed hyperlipidemia Qualified Code(s): E78.2 - Mixed hyperlipidemia Procedures/tests Complete & Pending: Procedures Performed prior 72 hours Category Date Time Status ECG 48 holter monitor setup [ECG] Routine Y 02/02/17 11:39 Completed Date of admission: 02/01/17 14:28 [facility] care physician: [facility] Consults: 02/01/17 14:46 Consult to Interpret Exam [CONS] Routine Consulting Provider: Pedro Luis Silva Consult to Interpret Exam: Interpret EEG 02/02/17 08:03 Consult to Cardiology [CONS] Routine Comment: Consulting Provider: Cardiology Rachel Reason for Consult: Syncope. Noted to be bradycardic - ? cardiac cause of symptoms. Call Completed: Yes Hospital course: Mr. Real is a 71 year old male - Time Spent with Patient Total time spent providing and/or coordinating discharge services: 41min - Constitutional Vitals: Temp Pulse Resp BP Pulse Ox 97.8 F 49 16 160/76 97 02/02/17 10:51 02/02/17 10:51 02/02/17 10:51 02/02/17 10:51 02/02/17 11:00 - Attending Attestation I examined this patient and my medical decision-making was reviewed with the Resident Physician on 02/02/17. I agree with the documented findings, disposition and treatment plan as described except to the extent set forth below. Mr. Real is doing OK today. He has had no further episodes. He is ready to go home. Exam Alert Comfortable Heart reg Lungs clear Plan D/C home on lower dose of Coreg 48h holter Follow up
--- NOTE | 2017-02-05 17:25 | Electrocardiograph Report ---
[facility] Test Date: 2017-01-31 Pat Name: Hiren Real Department: 102 Room: 2NE28 Gender: M Physical Therapy Aid: : 1945 Requested By: Jaye See Order Number: [id number] Reading MD: Luis Gupta MD Measurements Intervals [place] Rate: 55 P: 74 CO: 181 QRS: 64 QRSD: 101 T: 58 QT: 446 QTc: 434 Interpretive Statements SINUS BRADYCARDIA Electronically Signed On 02-05-2017 17:23:38 EDT by Luis Gupta MD
== END 2017-02-02 16:46 | disposition home or self-care (01) | DRG 68 ==
LOC: EMEROO 11:11 → 2NENU 17:19 → INTOOBSV 17:19 → 2NENU 18:11
PROVIDERS: ADMIT Internal Medicine; ATTEND Internal Medicine

== ENCOUNTER 2022-01-20 16:10 | Observation (INO) ==
[2022-01-20] MEDS ORDERED: Naloxone 0.4 MG/ML INJ IVP PRN ×2 (18:23→19:09)
[2022-01-20] MEDS ORDERED: *HR* OxyCODONE Immed Rel 5 MG TABLET PO PRN (19:09)
[2022-01-20] MEDS ORDERED: *HR* HYDROcodone/Acet 5/325 mg TABLET PO PRN (19:09)
[2022-01-20] MEDS ORDERED: Ondansetron ODT 4 MG TAB.RAPDIS SL PRN (19:09)
[2022-01-20] MEDS ORDERED: Acetaminophen 325 MG TABLET PO PRN (19:09)
[2022-01-20] MEDS ORDERED: Melatonin 3 MG TABLET PO PRN (19:09)
[2022-01-20] MEDS ORDERED: Perflutren Lipid Microsphere 1.3 ML in 0.9 % Sodium Chloride 8.7 ML IVP PRN (19:12)
[2022-01-20] MEDS ORDERED: Nitroglycerin 0.4 MG TAB.SUBL SL PRN (19:54)
[2022-01-20] MEDS ORDERED: Dextrose 4 GM Chewable Tablets PO PRN ×2 (20:42)
[2022-01-20] MEDS ORDERED: D5% in Water 1,000 ML IVC PRN (20:42)
[2022-01-20] MEDS ORDERED: *HR* Dextrose 50 % in Water (Syg) 50 ML SYRINGE IVP PRN (20:42)
[2022-01-21 03:55] LABS: Basophils # 0.1 K/mcL (0.0-0.2); Basophils % 0.6 %; Eosinophils # 1.3 K/mcL (0.0-0.6); Eosinophils % 12.9 %; Hematocrit 39.9 % (37.5-50.1); Hemoglobin 13.1 g/dL (12.9-16.9); Immature Granulocytes % 0.2 % (0-4); Lymphocytes # 2.9 K/mcL (0.6-4.6); Lymphocytes % 29.8 %; Mean Corpuscular HGB Conc 32.8 g/dL (31.6-35.5); Mean Corpuscular Hemoglobin 33.4 pg (28.0-33.3); Mean Corpuscular Volume 101.8 fL (83.0-100.0); Mean Platelet Volume 10.2 fL (9.4-12.4); Monocytes # 0.8 K/mcL (0.0-1.3); Neutrophils # 4.8 K/mcL (1.6-8.9); Platelet Count 248 K/mcL (140-400); Red Blood Count 3.92 M/mcL (4.19-5.50); Red Cell Distribution Width 14.2 % (11.5-14.5); Segmented Neutrophils % 48.5 %; White Blood Count 9.9 K/mcL (4.3-11.1)
[2022-01-21 04:17] LABS: Calcium 9.3 mg/dL (8.6-10.3)
[2022-01-21 04:18] LABS: Phosphorous 2.8 mg/dL (2.7-4.5)
[2022-01-21 04:25] LABS: Thyroid Stimulating Hormone 4.36 mcIU/mL (0.340-5.600)
[2022-01-21 04:34] LABS: Estimated Average Glucose 117 mg/dl; Hemoglobin A1C 5.7 %
[2022-01-21] MEDS ORDERED: Regadenoson 0.4 MG/5 ML SYRINGE IVP ONE (07:32)
[2022-01-21] MEDS ORDERED: *HR* LORazepam 2 MG/ML VIAL IVP ONE (07:52)
[2022-01-21] MEDS ORDERED: Aspirin 81 MG TAB.CHEW PO SCH (09:00)
[2022-01-21 11:41] VITALS: BP 157/76; PULSE 62; TEMP 97.9; O2SAT 93
[2022-01-21] MEDS ORDERED: Isosorbide MONOnitrate (24 HR) 30 MG TAB.ER.24H PO SCH (12:30)
[2022-01-21] MEDS ORDERED: amLODIPine 5 MG TABLET PO SCH (14:08)
[2022-01-21] MEDS ORDERED: Aspirin Enteric Coated 81 MG Tablet PO SCH (14:15)
[2022-01-21] MEDS ORDERED: Cholecalciferol (D-3) 1,000 UNIT (25MCG) TABLET PO SCH (14:15)
[2022-01-21] MEDS ORDERED: Finasteride 5 MG TABLET PO SCH (14:15)
[2022-01-21 16:24] LABS: Bilirubin,Urine Negative (Negative); Blood,Urine Negative (Negative); Clarity,Urine Clear (Clear); Color,Urine Yellow (Yellow); Glucose,Urine (UA) Normal (Normal); Ketones,Urine Negative (Negative); Leukocyte Esterase,Urine Negative (Negative); Nitrite,Urine Negative (Negative); Protein,Urine Trace mg/dL (Neg-Trace); Specific Gravity,Urine 1.021 (1.010-1.025); Urobilinogen,Urine Normal (Normal)
[2022-01-21] MEDS ORDERED: NON-FORMULARY MEDICATION 1 EACH EACH (Isosorbide Mononitrate [Isosorbide Mononitrate] 20 M PO SCH (21:00)
[2022-01-22] MEDS ORDERED: Aspirin Enteric Coated 81 MG Tablet PO SCH (09:00)
[2022-01-22] MEDS ORDERED: amLODIPine 5 MG TABLET PO SCH (09:00)
[2022-01-22] MEDS ORDERED: Finasteride 5 MG TABLET PO SCH (09:00)
== END 2022-01-21 17:46 | disposition home or self-care (01) ==
LOC: 3BNU → SUATTDRO 18:09
PROVIDERS: ADMIT Internal Medicine; ATTEND Registered Nurse